=== PATIENT | female | born 1980 | race Caucasian/White ===

== ENCOUNTER → 2020-08-20 | Outpatient (CLI) | payer OTHER | LOC: MRI 13:00 | DX: G35 Multiple sclerosis (principal); M50.222 Other cervical disc displacement at C5-C6 level | CPT/HCPCS: 70553; 72156; A9577 ==

== ENCOUNTER 2021-03-16 18:01 | Emergency (ER) | payer OTHER ==
[2021-03-16] MEDS ORDERED: VENTOLIN HFA 66.7 GM INH (22:01)
[2021-03-16] MEDS ORDERED: MEDROL DOSEPAK 24 MG PO (22:01)
[2021-03-16] MEDS ORDERED: DELSYM30 MG/5 ML PO (22:01)
[2021-03-16] MEDS ORDERED: ZITHROMAX250 MG PO (22:01)
== END 2021-03-16 22:00 | disposition home or self-care (01) ==
LOC: ER1 18:01
DX: U07.1 COVID-19 (principal); Z90.710 Acquired absence of both cervix and uterus; Z90.49 Acquired absence of other specified parts of digestive tract; Z90.89 Acquired absence of other organs; Z88.5 Allergy status to narcotic agent; Z88.1 Allergy status to other antibiotic agents; Z79.899 Other long term (current) drug therapy
CPT/HCPCS: 99283

== ENCOUNTER → 2021-11-04 | Outpatient (CLI) | payer OTHER ==
[~2021-11-04] MED LIST: DELSYM30 MG/5 ML PO; MEDROL DOSEPAK 24 MG PO; VENTOLIN HFA 66.7 GM INH; ZITHROMAX250 MG PO
== END ==
LOC: HEART 5 10-28 13:30
DX: G57.61 Lesion of plantar nerve, right lower limb (principal); R60.0 Localized edema; I83.11 Varicose veins of right lower extremity with inflammation; I83.12 Varicose veins of left lower extremity with inflammation
CPT/HCPCS: 93970

== ENCOUNTER → 2021-11-12 | Outpatient (CLI) | payer OTHER | LOC: EMI 13:52 | DX: R29.2 Abnormal reflex (principal); M51.34 Other intervertebral disc degeneration, thoracic region | CPT/HCPCS: 72157; A9577 ==